=== PATIENT | female | born 1975 | race African-American/Black ===

== ENCOUNTER → 2016-11-08 | Outpatient (CLI) | payer MEDICARE ==
[~2016-11-08] MED LIST: NORCO 5-325 TA1 EACH PO
== END ==
LOC: KOH-I 11-01 16:30
DX: E03.9 Hypothyroidism, unspecified (principal)
CPT/HCPCS: 76536

== ENCOUNTER 2020-08-23 15:30 | Inpatient (IN) | payer OTHER ==
[~2020-08-23 15:30] MED LIST changes: +COREG25 MG PO; +LEXAPRO20 MG PO; +REMERON15 MG PO; +SEROQUEL100 MG PO; +SYNTHROID100 MCG PO; +ZESTRIL10 MG PO
[2020-08-23 17:00] LABS: HEMOGLOBIN 12.8 gm/dl (12.3-15.3); RED BLOOD COUNT 4.49 M/UL (4.00-5.10); WHITE BLOOD COUNT 14.6 K/UL (4.5-11.0)
[2020-08-23 17:19] LABS: BUN/CREATININE RATIO 23 (0-10)
[2020-08-24 07:24] LABS: HEMOGLOBIN 12.4 gm/dl (12.3-15.3); RED BLOOD COUNT 4.47 M/UL (4.00-5.10)
[2020-08-24 07:26] LABS: WHITE BLOOD COUNT 10.3 K/UL (4.5-11.0)
[2020-08-24] MEDS ORDERED: VOLTAREN EC 7575 MG PO (13:37)
[2020-08-24] MEDS ORDERED: KLONOPIN0.5 MG PO (13:37)
[2020-08-24] MEDS ORDERED: LORATADINE10 MG PO (13:40)
[2020-08-24] MEDS ORDERED: XALATAN OP SOL2.5 ML EYEBOTH (13:40)
[2020-08-24] MEDS ORDERED: PRAVASTATIN SOD40 MG PO (13:41)
[2020-08-24] MEDS ORDERED: PROTONIX40 MG PO (13:41)
== END 2020-08-24 15:45 | DRG 918 ==
LOC: ER1 15:30 → ZEROF 17:34
PROVIDERS: Emergency Medicine; Physician Assistant Medical; ADMIT Internal Medicine
DX: T44.7X2A Poisoning by beta-adrenoreceptor antagonists, intentional self-harm, initial encounter (principal); F31.9 Bipolar disorder, unspecified; F20.9 Schizophrenia, unspecified; I10 Essential (primary) hypertension; E78.5 Hyperlipidemia, unspecified; Z79.899 Other long term (current) drug therapy; Z91.5 Personal history of self-harm; F17.210 Nicotine dependence, cigarettes, uncomplicated; F19.10 Other psychoactive substance abuse, uncomplicated; Z20.822 Contact with and (suspected) exposure to COVID-19
CPT/HCPCS: 80053; 80307; 81001; 82550; 82553; 83735; 83874; 84484; 84703; 85025; 85027; 93005; 96374; 96375; 99285; G0480; U0002

== ENCOUNTER 2020-09-04 19:26 | Inpatient (IN) | payer OTHER ==
[~2020-09-04] VITALS: Ht 160 cm; Wt 65.8 kg
[~2020-09-04 19:26] MED LIST changes: +KLONOPIN0.5 MG PO; +LORATADINE10 MG PO; +PRAVASTATIN SOD40 MG PO; +PROTONIX40 MG PO; +VOLTAREN EC 7575 MG PO; +XALATAN OP SOL2.5 ML EYEBOTH
[2020-09-04 22:59] LABS: HEMOGLOBIN 12.6 gm/dl (12.3-15.3); RED BLOOD COUNT 4.4 M/UL (4.00-5.10); WHITE BLOOD COUNT 11.1 K/UL (4.5-11.0)
[2020-09-04 23:29] LABS: BUN/CREATININE RATIO 11 (0-10)
[2020-09-05] MEDS ORDERED: MACRODANTIN100 MG PO (00:35)
[2020-09-05] MEDS ORDERED: PRENATAL VITAM1 EAC3 PO (00:35)
[2020-09-05] MEDS ORDERED: NORVASC5 MG PO (00:38)
[2020-09-06 06:26] LABS: RED BLOOD COUNT 3.91 M/UL (4.00-5.10); WHITE BLOOD COUNT 13.9 K/UL (4.5-11.0)
[2020-09-06 06:56] LABS: BUN/CREATININE RATIO 26 (0-10)
[2020-09-06] MEDS ORDERED: BENADRYL A12.5 MG/5 PO (11:02)
[2020-09-06] MEDS ORDERED: MEDROL DOSEPAK 24 MG PO (11:02)
[2020-09-06] MEDS ORDERED: PEPCID20 MG PO (11:02)
== END 2020-09-06 13:44 | disposition home or self-care (01) | DRG 916 ==
LOC: ER1 19:26 → CDU 09-05 00:33 → M/S 09-05 00:33
PROVIDERS: Internal Medicine; Internal Medicine Nephrology; Physician Assistant; ADMIT Family Medicine
DX: T78.3XXA Angioneurotic edema, initial encounter (principal); N17.9 Acute kidney failure, unspecified; T46.4X5A Adverse effect of angiotensin-converting-enzyme inhibitors, initial encounter; Z20.822 Contact with and (suspected) exposure to COVID-19; I10 Essential (primary) hypertension; F17.210 Nicotine dependence, cigarettes, uncomplicated; E03.9 Hypothyroidism, unspecified; F41.9 Anxiety disorder, unspecified; F32.9 Major depressive disorder, single episode, unspecified; F19.11 Other psychoactive substance abuse, in remission; G47.00 Insomnia, unspecified; Z88.8 Allergy status to other drugs, medicaments and biological substances; Z79.890 Hormone replacement therapy; Z79.899 Other long term (current) drug therapy; Z82.49 Family history of ischemic heart disease and other diseases of the circulatory system
CPT/HCPCS: 36415; 80048; 80053; 80307; 81001; 82550; 82553; 82570; 83874; 84133; 84156; 84300; 84484; 85007; 85025; 85027; 89050; 96365; 96375; 96376; 99284; J1200; J2920; J2930; P9047; U0002

== ENCOUNTER 2020-10-23 23:20 | Emergency (ER) | payer OTHER ==
[~2020-10-23 23:20] MED LIST changes: +BENADRYL A12.5 MG/5 PO; +MACRODANTIN100 MG PO; +MEDROL DOSEPAK 24 MG PO; +NORVASC5 MG PO; +PEPCID20 MG PO; +PRENATAL VITAM1 EAC3 PO
[2020-10-24] MEDS ORDERED: TYLENOL DR160 MG/5 M PO (02:50)
== END 2020-10-24 02:30 | disposition home or self-care (01) ==
LOC: ER1 23:20
DX: R31.9 Hematuria, unspecified (principal); R30.0 Dysuria; I10 Essential (primary) hypertension; E03.9 Hypothyroidism, unspecified; F17.210 Nicotine dependence, cigarettes, uncomplicated; Z90.710 Acquired absence of both cervix and uterus
CPT/HCPCS: 99283

== ENCOUNTER 2021-01-08 02:15 | Emergency (ER) | payer OTHER ==
[~2021-01-08 02:15] MED LIST changes: +TYLENOL DR160 MG/5 M PO
[2021-01-08 03:32] LABS: HEMOGLOBIN 13.4 gm/dl (12.3-15.3); RED BLOOD COUNT 4.55 M/UL (4.00-5.10); WHITE BLOOD COUNT 11.7 K/UL (4.5-11.0)
[2021-01-08 03:57] LABS: BUN/CREATININE RATIO 26 (0-10)
== END 2021-01-08 04:07 ==
LOC: ER1 02:15
PROVIDERS: Emergency Medicine
DX: F41.9 Anxiety disorder, unspecified (principal); F32.9 Major depressive disorder, single episode, unspecified; I10 Essential (primary) hypertension; F17.200 Nicotine dependence, unspecified, uncomplicated; Z20.822 Contact with and (suspected) exposure to COVID-19
CPT/HCPCS: 80053; 80307; 81001; 82550; 82553; 83690; 83735; 83874; 84439; 84443; 84484; 84703; 85025; 93005; 99284; G0480; U0002

== ENCOUNTER 2021-02-04 04:29 | Emergency (ER) | payer OTHER ==
[2021-02-04 05:09] LABS: HEMOGLOBIN 12.6 gm/dl (12.3-15.3); RED BLOOD COUNT 4.31 M/UL (4.00-5.10); WHITE BLOOD COUNT 10.7 K/UL (4.5-11.0)
[2021-02-04 05:32] LABS: BUN/CREATININE RATIO 16 (0-10)
== END 2021-02-04 07:16 | disposition home or self-care (01) ==
LOC: ER1 04:29
PROVIDERS: Emergency Medicine
DX: M54.5 Low back pain (principal); M54.6 Pain in thoracic spine; F15.90 Other stimulant use, unspecified, uncomplicated; N18.9 Chronic kidney disease, unspecified
CPT/HCPCS: 80053; 80307; 81001; 85025; 99283

== ENCOUNTER 2021-02-19 18:17 | Emergency (ER) | payer OTHER ==
[2021-02-19 19:31] LABS: HEMOGLOBIN 11.5 gm/dl (12.3-15.3); RED BLOOD COUNT 3.97 M/UL (4.00-5.10); WHITE BLOOD COUNT 7.6 K/UL (4.5-11.0)
[2021-02-19 19:51] LABS: BUN/CREATININE RATIO 13 (0-10)
== END 2021-02-19 22:05 | disposition home or self-care (01) ==
LOC: ER1 18:17
PROVIDERS: Physician Assistant
DX: R60.0 Localized edema (principal); M25.572 Pain in left ankle and joints of left foot; E03.9 Hypothyroidism, unspecified; E78.5 Hyperlipidemia, unspecified; I10 Essential (primary) hypertension; F17.200 Nicotine dependence, unspecified, uncomplicated; Z90.710 Acquired absence of both cervix and uterus
CPT/HCPCS: 73610; 80053; 83880; 85025; 99283